=== PATIENT | male | born 1955 | race Caucasian/White ===

== ENCOUNTER → 2020-07-09 | Outpatient (CLI) | payer MEDICARE ==
--- NOTE | 2020-07-10 10:55 | CT ---
EXAMINATION TYPE: CT abdomen pelvis wo con DATE OF EXAM: 07/09/2020 COMPARISON: None HISTORY: Upper abdominal pain. CT DLP: 330.8 mGycm Automated exposure control for dose reduction was used. TECHNIQUE: Helical acquisition of images from the lung bases through the pelvis. FINDINGS: There is evidence of granulomatous disease, right calcified hilar node, there are coronary artery calcifications, possible aortic valve leaflet calcification. Lack of intravenous contrast coul d compromise sensitivity. Thickening of the stomach wall is nonspecific and could be due to lack of d istention, difficult to exclude mucosal abnormality. LUNG BASES: No significant abnormality is appreciated. AORTA: No significant abnormality is appreciated. LIVER/GB: Scattered calcifications are present, gallbladder is normal PANCREAS: No significant abnormality is seen. SPLEEN: Scattered calcifications present. ADRENALS: No significant abnormality is seen. KIDNEYS: No significant abnormality is seen. REPRODUCTIVE ORGANS: Prostate shows some associated calcification URINARY BLADDER: No significant abnormality is seen. BOWEL: Left inguinal hernia contains loop of descending colon without evident obstruction, thickenin g along the rectosigmoid colon could be due to lack of distention or muscular hypertrophy, cannot exc lude a mucosal lesion, some scattered diverticular changes are present FREE AIR: No Free Air is visible. ASCITES: None visible. PELVIC ADENOPATHY: None visualized. RETROPERITONEAL ADENOPATHY: No Retroperitoneal Adenopathy visible. OSSEOUS STRUCTURES: Degenerative disc changes, facet arthropathy noted in the visualized spine. Malena nary artery disease. Noncontrast exam. Additional findings above. IMPRESSION: LEFT INGUINAL HERNIA CONTAINS COLON, DIVERTICULOSIS. OLD GRANULOMATOUS DISEASE.
== END ==
LOC: RADCTMAIN 18:38
PROVIDERS: ATTEND Family Medicine
DX: K57.30 Diverticulosis of large intestine without perforation or abscess without bleeding (principal); K40.90 Unilateral inguinal hernia, without obstruction or gangrene, not specified as recurrent
CPT/HCPCS: 74176

== ENCOUNTER → 2020-09-10 | Outpatient (CLI) | payer MEDICARE | END | disposition home or self-care (01) | LOC: LABWHC1 06:53 | PROVIDERS: ATTEND Surgery Plastic and Reconstructive Surgery | DX: I11.9 Hypertensive heart disease without heart failure (principal) | CPT/HCPCS: 36415; 93005 ==

== ENCOUNTER → 2020-12-24 | Day surgery (SDC) | payer MEDICARE ==
[2020-12-23 08:26] VITALS: BMI 26.6
[~2020-12-24] MED LIST: ACETAMINOPHEN TAB 500 MG TAB PO PRN; DEXAMETHASONE SOD PHOSPHATE 4 MG/ML 1 ML VIAL IV ONE; GLYCOPYRROLATE 0.2 MG/ML 2 ML VIAL ONE; HEPARIN SODIUM,PORCINE/PF 5,000 UNIT/0.5 ML SYRINGE SQ PRN; HYDROmorphone 0.5 MG/0.5 ML SYRINGE IVP PRN; KETOROLAC 15 MG/ML 1 ML VIAL IVP PRN; LACTATED RINGERS 1,000 ML IV ONE; LACTATED RINGERS 1,000 ML IV SCH; LIDOCAINE 1% (10MG/ML) FOR IV START INTRADERMA PRN; LIDOCAINE 1% INJ 10MG/ML (20 ML MDV) ONE; LIDOCAINE 1%-EPI 1:100,000 20 ML VIAL SQ ONE; MIDAZOLAM 2 MG/2 ML VIAL IV PRN; NEOSTIGMINE 1 MG/ML 10 ML VIAL ONE; ONDANSETRON 4 MG/2 ML VIAL IVP ONE; PROPOFOL 10 MG/ML 20 ML VIAL IV ONE; ROCURONIUM 10 MG/ML (5 ML VIAL) IV ONE; ROPIVACAINE 5 MG/ML 30 ML VIAL ONE; SODIUM CHLORIDE 0.9% (PF) 10 ML VIAL ONE; SUCCINYLCHOLINE CHLORIDE 100 MG/5 ML SYR IV ONE; TAMSULOSIN 0.4 MG CAP.ER.24H PO PRN; fentaNYL (PF) 50 MCG/ML 2 ML AMP IVP ONE; oxyCODONE-APAP 5-325MG 1 EACH TAB PO PRN
[2020-12-24 06:48] LABS: Glucose,Whole Blood 122 mg/dL (75-99)
--- NOTE | 2020-12-24 07:28 | P.GSHP ---
History of Present Illness H&P Date: 12/24/20 CHIEF COMPLAINT: Inguinal hernia, left HISTORY OF PRESENT ILLNESS: The patient is a -year-old male who presents with a history of swelling and pain along the left groin. He's noted increased swelling including pain of the area. Now he presents for repair of his inguinal hernia. PAST MEDICAL HISTORY: Please see list. PAST SURGICAL HISTORY: Please see list. MEDICATIONS: Please see list. ALLERGIES: Please see list. SOCIAL HISTORY: No illicit drug use FAMILY HISTORY: No reports of Crohn disease or ulcerative colitis. REVIEW OF ORGAN SYSTEMS: CONSTITUTIONAL: No reports of fevers or chills. No reports of weight loss despite prior attempts. GI: Denies any blood in stools or constipation. PHYSICAL EXAM: VITAL SIGNS: Stable GENERAL: Well-developed pleasant male in no acute distress. HEENT: No scleral icterus. Extraocular movements grossly intact. Moist buccal mucosa. NECK: Supple without lymphadenopathy. CHEST: Unlabored respirations. Equal bilateral excursions. CARDIOVASCULAR: Regular rate and rhythm. Distal 2+ pulses. ABDOMEN: Soft, nondistended. No peritoneal signs. Palpable defect of the left groin. MUSCULOSKELETAL: No clubbing, cyanosis, or edema. ASSESSMENT: 1. Inguinal hernia, left PLAN: 1. Recommend proceeding with a robotic inguinal repair with mesh with possible bilateral approach. 2. Benefits and risks of surgical intervention was discussed including possibility of open technique. 3. DVT prophylaxis. 4. Antibiotic prophylaxis. Past Medical History Past Medical History: Diabetes Mellitus, Hyperlipidemia, Hypertension, Osteoarthritis (OA) History of Any Multi-Drug Resistant Organisms: None Reported Past Surgical History: Hernia Repair, Orthopedic Surgery Additional Past Surgical History / Comment(s): ORIF RT ANKLE Past Anesthesia/Blood Transfusion Reactions: No Reported Reaction Smoking Status: Former smoker - Past Family History Mother Family Medical History: No Reported History Medications and Allergies Home Medications Medication Instructions Recorded Confirmed Type Acetaminophen-Codeine 300-30mg 1 tab PO DIRECTED PRN 12/23/20 12/24/20 History [Tylenol w/codeine #3] Aspirin [Adult Low Dose Aspirin EC] 80 mg PO DAILY 12/23/20 12/23/20 History Atorvastatin [Lipitor] 10 mg PO HS 12/23/20 12/24/20 History Enalapril [Vasotec] 10 mg PO BID 12/23/20 12/24/20 History metFORMIN HCL [Glucophage] 1,000 mg PO DAILY 12/23/20 12/24/20 History Allergies Allergy/AdvReac Type Severity Reaction Status Date / Time Penicillins AdvReac Rash/Hives Verified 12/24/20 06:54 Surgical - Exam Vital Signs Temp Pulse Resp BP Pulse Ox 97.7 F 72 16 115/65 98 12/24/20 06:21 12/24/20 06:21 12/24/20 06:21 12/24/20 06:21 12/24/20 06:21 Results - Labs Abnormal Lab Results - Last 24 Hours (Table) 12/24/20 Range/Units 06:28 POC Glucose (mg/dL) 122 H (75-99) mg/dL
[2020-12-24 07:34] LABS: Basophils # (A) 0.1 k/uL (0-0.2); Basophils % (A) 1 %; Eosinophils # (A) 0.3 k/uL (0-0.7); Eosinophils % (A) 5 %; HCT 42.7 % (39.0-53.0); HGB 14.8 gm/dL (13.0-17.5); Lymphocytes # (A) 1.5 k/uL (1.0-4.8); Lymphocytes % (A) 25 %; MCH 32.4 pg (25.0-35.0); MCHC 34.7 g/dL (31.0-37.0); MCV 93.5 fL (80.0-100.0); Mean Platelet Volume 8.7; Monocytes # (A) 0.3 k/uL (0-1.0); Monocytes % (A) 6 %; Neutrophils # (A) 3.7 k/uL (1.3-7.7); Neutrophils % (A) 60 %; Platelet Count 148 k/uL (150-450); RBC 4.57 m/uL (4.30-5.90); WBC 6.2 k/uL (3.8-10.6)
[2020-12-24 09:14] VITALS: TEMP 98
[2020-12-24 09:29] LABS: Glucose,Whole Blood 204 mg/dL (75-99)
[2020-12-24 09:44] VITALS: RESP 17
[2020-12-24 10:05] VITALS: BP 104/60; PULSE 68
[2020-12-24 10:08] LABS: Glucose,Whole Blood 214 mg/dL (75-99)
[2020-12-24 10:53] LABS: African American GFR (CKD) >90 (>60 ml/min/1.73 sqM); Anion Gap 5 mmol/L; Blood Urea Nitrogen 24 mg/dL (9-20); Carbon Dioxide 26 mmol/L (22-30); Chloride 106 mmol/L (98-107); Glucose 193 mg/dL (74-99); Non-African American GFR(CKD) >90 (>60 ml/min/1.73 sqM); Potassium 4.6 mmol/L (3.5-5.1); Sodium 137 mmol/L (137-145)
--- NOTE | 2020-12-24 11:03 | P.OP ---
Date of Procedure: 12/24/20 Description of Procedure: SURGEON: AMEENA CAVAZOS MD PREOPERATIVE DIAGNOSES: 1. Initial left inguinal hernia with incarcerated large bowel obstruction 2. Diabetes type 2, [id number] 3. Hypertensive heart disease 4. Hyperlipidemia 5. Thrombocytopenia POSTOPERATIVE DIAGNOSES: PREOPERATIVE DIAGNOSES: 1. Initial left inguinal hernia with incarcerated large bowel obstruction, sigmoid colon 2. Diabetes type 2, [id number] 3. Hypertensive heart disease 4. Hyperlipidemia 5. Thrombocytopenia 6. Omental to abdominal peritoneal adhesions epigastrium OPERATION: 1. Robotic assisted da Estevan Xi laparoscopic lysis of adhesions 2. Robotic assisted da Estevan Xi laparoscopic reduction and repair of left inguinal hernia repair with ventralight ST mesh, 11.4 cm. Anesthesia: GETA, local, regional block Estimated Blood Loss (ml): 5 Pathology: other (Left inguinal sac) Condition: stable Disposition: floor COMPLICATIONS: None. Operative Findings: 1. Epigastric omental abdominal adhesions requiring sharp dissection including scissor and vessel sealer 2. Large left inguinal indirect hernia, 3 cm, Nyhus type II with incarcerated sigmoid colon reduced without ischemia or infarction INDICATIONS: The patient is a 65-year-old gentleman who presents with history of left inguinal hernia. Now presents for definitive surgical intervention. Laparoscopic versus open and robotic approaches were discussed. Benefits and risks including bleeding, infection, injury to the vas deferens as well as sterility and chronic groin pain were reviewed. Placement of mesh was also described. Informed consent was obtained. DESCRIPTION: In the preoperative area, the patient was marked with indelible marker along the left groin. The patient was brought to the operating room and laid in supine position. After general induction, the abdomen had been prepped and draped in standard sterile fashion. Ioban draping was also placed. Prior to incision, a timeout protocol was confirmed with surgical team regarding patient's name including procedures to be performed and location along the left groin. Initial positioning for the robotic assisted ports were selected whereby 20 cm superior to the target anatomy, 0 degree 5 mm laparoscopic trocar entry was performed at the left upper quadrant. The abdomen was insufflated to 15 mmHg which he had tolerated well. Diagnostic laparoscopy demonstrated moderate omental adhesions to the abdominal wall along the epigastrium moderate. Additionally the sigmoid colon was incarcerated into the left groin with a large indirect left inguinal hernia over 3 cm in size. The right groin was unremarkable. Next, along the epigastrium, 8 mm robot trocar was placed. An 8-mm robotic trocar was placed under direct visualization at the right upper quadrant. The 5 mm port was exchanged for a 8 mm trocar. Accessory robotic trocar 12 mm was placed along the right lateral abdominal wall for placement of sutures and mesh. All trocars were positioned between 8 to 10-cm apart from each other. The patient was placed in steep reverse Trendelenburg position, 17. The [employer] XI robot was primed, draped, prepared for docking along the upper abdomen of the patient. I then went to the [employer] Xi console. The shipping assistant was at bedside for exchange of the robot arms and equipment. At the left groin, over 3 cm direct inguinal hernia was identified. The hernia sac was evaginated whereby the peritoneum was scored using Endo scissors with cautery. The hernia sac had reached to the scrotum and was transected using incarcerated. Once completely reduced into the abdominal cavity, the peritoneal sac of the julieta chapman was identified. The sac was resected and then passed off for further pathological analysis. The size of the hernia defect was 3 cm with intraoperative films obtained. Using a nonabsorbable2-0 VLOC, the peritoneal defect of the left inguinal hernia site was closed using a pursestring suture. The defect was found to be completely closed with complete reduction of the left inguinal hernia was confirmed. As an onlay, an 11.[address] mesh by [employer] was cut in half and entered into the abdominal cavity via the 8 mm trocar. The mesh was tacked to the pelvis using nonabsorbable 2-0 VLOC x 9-inch length sutures. The robot was undocked from the patient's bedside. I then rescrubbed into the case. Insufflation was released from the abdominal cavity and all instruments were removed from the abdominal cavity. The rest of incisions were reapproximated using 4-0 Monocryl in a running subcuticular fashion. Local anesthetic was placed along the incision including for a groin block. Incisions were cleansed using dilute hydrogen peroxide. Liquid glue was applied to the skin. At the end of the procedure, the needle, sponge and instrument counts had been verified correct by the assistant professor surgical technology. The patient had tolerated the procedure well and was taken to the postanesthesia care unit in stable condition. Intraoperative findings were described to the patient's family who were pleased with the level of care. Plan - Discharge Summary Discharge Rx Participant: No New Discharge Prescriptions: New Tamsulosin [Flomax] 0.4 mg PO DAILY #5 cap Simethicone [Gas-X] 125 mg PO AC-TID PRN #20 capsule PRN Reason: Pain Ibuprofen [Motrin] 600 mg PO Q8HR PRN #30 tab PRN Reason: Pain Continue metFORMIN HCL [Glucophage] 1,000 mg PO DAILY Enalapril [Vasotec] 10 mg PO BID Atorvastatin [Lipitor] 10 mg PO HS Acetaminophen-Codeine 300-30mg [Tylenol w/codeine #3] 1 tab PO DIRECTED PRN PRN Reason: Pain Aspirin [Adult Low Dose Aspirin EC] 80 mg PO DAILY Discharge Medication List Acetaminophen-Codeine 300-30mg [Tylenol w/codeine #3] 1 tab PO DIRECTED PRN 12/23/20 [History] Aspirin [Adult Low Dose Aspirin EC] 80 mg PO DAILY 12/23/20 [History] Atorvastatin [Lipitor] 10 mg PO HS 12/23/20 [History] Enalapril [Vasotec] 10 mg PO BID 12/23/20 [History] metFORMIN HCL [Glucophage] 1,000 mg PO DAILY 12/23/20 [History] Ibuprofen [Motrin] 600 mg PO Q8HR PRN #30 tab 12/24/20 [Rx] Simethicone [Gas-X] 125 mg PO AC-TID PRN #20 capsule 12/24/20 [Rx] Tamsulosin [Flomax] 0.4 mg PO DAILY #5 cap 12/24/20 [Rx] Follow up Appointment(s)/Referral(s): Ameena Cavazos MD [STAFF PHYSICIAN] - 01/06/21 Patient Instructions/Handouts: *[facility] - Anesthesia Discharge Instructions, *[facility] - Laparoscopic Cholecystectomy Discharge Instructions, *[facility] - Managing Your Pain After Surgery Without Opioids, Inguinal Hernia (DC), Lysis of Abdominal Adhesions (DC), Inguinal Hernia Repair (DC) Activity/Diet/Wound Care/Special Instructions: Using antibacterial soap. No lifting over 4 pounds 2 weeks, January 07September shower. No bathtub soaks, swimming, hot tubs for 2 weeks, January 07 Use ice along incisions for today to prevent swelling. Discharge Disposition: HOME SELF-CARE
--- NOTE | 2020-12-24 11:53 | P.ANPRN ---
Procedure Note - Anesthesia - Nerve Block Performed Bilateral Erector Spinae Time Out Performed: Yes (:) Date of Procedure: 12/24/20 Procedure Start Time: Procedure Stop Time: Location of Patient: PreOp Indication: Acute Post-Operative Pain, Requested by Surgeon (Dr Oneal) Sedation Type: Sedate with meaningful contact maintained Preparation: Sterile Prep Position: Prone Catheter: None Needle Types: Pajunk Needle Gauge: 21 Ultrasound used to visualize needle placement: Yes Ultrasound used to observe medication spread: Yes Injectate: 0.5% Ropivacaine (see comment for volume) (15cc + 10cc PFNormal saline each side) Blood Aspirated: No Pain Paresthesia on Injection Noted: No Resistance on Injection: Normal Image Stored and Saved: Yes Events: Uneventful and Well Tolerated
== END | disposition home or self-care (01) ==
LOC: OR 05:48
PROVIDERS: ATTEND Surgery Plastic and Reconstructive Surgery
DX: K56.609 Unspecified intestinal obstruction, unspecified as to partial versus complete obstruction (principal); K40.90 Unilateral inguinal hernia, without obstruction or gangrene, not specified as recurrent; K66.0 Peritoneal adhesions (postprocedural) (postinfection); E11.9 Type 2 diabetes mellitus without complications; M54.9 Dorsalgia, unspecified; D69.6 Thrombocytopenia, unspecified; E78.5 Hyperlipidemia, unspecified; I11.9 Hypertensive heart disease without heart failure; M19.90 Unspecified osteoarthritis, unspecified site; Z79.82 Long term (current) use of aspirin; Z79.84 Long term (current) use of oral hypoglycemic drugs; Z87.891 Personal history of nicotine dependence; Z88.0 Allergy status to penicillin
CPT/HCPCS: 49650; 64999; 80048; 85025; 88302; C1781; J2250; J1100; J2710; J0690; J2405; J2001; J3010; J2795; J0330; J2704; J1644